=== PATIENT | female | born 1980 | race African-American/Black ===

== ENCOUNTER 2016-08-01 17:15 | Emergency (ER) | payer OTHER ==
[~2016-08-01 17:15] MED LIST: ALBUTEROL17 GM; AMOXICILLIN PO; ANAPROX DS550 M1 PO; BACTRIM DS TABL1 TAB PO; CIPRO PO; ELIMITE60 GM TOP; FLEXERIL10 MG PO; FLOMAX0.4 M1 PO; KEFLEX PO; PERCOCET 5-3251 TAB PO; PHENERGAN25 M1 PO; PYRIDIUM PO; VICODIN 5/500 T1 TAB PO
== END 2016-08-01 19:00 | disposition left against medical advice (07) ==
LOC: CFTX 17:15
DX: Z53.21 Procedure and treatment not carried out due to patient leaving prior to being seen by health care provider (principal)